=== PATIENT | female | born 1980 | race Caucasian/White ===

== ENCOUNTER 2024-06-06 20:25 | Emergency (ER) | payer OTHER ==
[~2024-06-06] VITALS: Ht 175.3 cm; Wt 117.9 kg
[~2024-06-06 20:25] MED LIST: BIKTARVY 50-201 EACH PO; INDOMETHACIN50 MG PO; LEVOFLOXACIN250 MG PO; LYRICA50 MG PO; MEDROL DOSE PACK PO; NAPROSYN500 MG PO; TIZANIDINE HCL4 M1 PO
[2024-06-06 21:29] VITALS: TEMP 98.6
[2024-06-06 21:44] LABS: BASOPHILS # (AUTO) 0.1 (0.0-0.1); BASOPHILS % 0.9 % (0.0-1.0); EOSINOPHILS % 0.4 % (0.0-6.0); HEMATOCRIT 40.9 % (34.2-44.1); HEMOGLOBIN 13.7 g/dL (12.0-16.0); LYMPHOCYTES # (AUTO) 2.8 (1.0-3.2); MEAN CORPUSCULAR HEMOGLOBIN 30.2 pg (28-32); MEAN CORPUSCULAR HGB CONC 33.5 g/dL (31-35); MEAN CORPUSCULAR VOLUME 90.1 fL (81-99); MONOCYTES # (AUTO) 0.5 (0.2-0.8); MONOCYTES % 6.7 % (4.4-11.3); NEUTROPHILS # (AUTO) 4.1 (2.1-6.9); NEUTROPHILS % 54.7 % (38.7-80.0); PLATELET COUNT 223 x10e3/uL (140-360); RED BLOOD COUNT 4.54 x10e6/uL (3.6-5.1); RED CELL DISTRIBUTION WIDTH 12.5 % (11.7-14.4); WHITE BLOOD COUNT 7.43 x10e3/uL (4.8-10.8)
[2024-06-06] MEDS: LEVOFLOXACIN 750MG/D5W 150ML 150 ML IV ONE (21:59)
[2024-06-06 22:05] LABS: ALBUMIN 4.4 g/dL (3.5-5.0); ALBUMIN/GLOBULIN RATIO 1.5 (0.8-2.0); ANION GAP 23.6 mmol/L (8-16); BILIRUBIN,TOTAL 0.3 mg/dL (0.2-1.2); CALCIUM 9.5 mg/dL (8.4-10.2); CREATININE, SERUM 0.85 mg/dL (0.57-1.11); POTASSIUM 3.6 mmol/L (3.5-5.1); TOTAL PROTEIN 7.4 g/dL (6.5-8.1)
[2024-06-06] MEDS ORDERED: ACETAMINOPHEN 325 MG TAB ONE (22:17)
[2024-06-06] MEDS: SODIUM CHLORIDE 0.9% 1000ML 1,000 ML IV STA (22:17)
[2024-06-06] MEDS: ACETAMINOPHEN 325 MG TAB PO STA (22:18)
[2024-06-06] MEDS ORDERED: CIPRO500 MG PO (22:44)
[2024-06-06 23:00] VITALS: PULSE 76; RESP 22
[2024-06-06 23:53] VITALS: BP 161/110
[2024-06-06] MEDS: HYDRALAZINE HCL 20 MG/ML VIAL IV STA (23:53)
[2024-06-07] VITALS: O2SAT 100
== END 2024-06-07 00:30 | disposition home or self-care (01) ==
LOC: ER 20:54
DX: G89.18 Other acute postprocedural pain (principal); L60.0 Ingrowing nail; R03.0 Elevated blood-pressure reading, without diagnosis of hypertension; B20 Human immunodeficiency virus [HIV] disease
CPT/HCPCS: 36415; 73630; 80053; 85025; 99284; J0360; J7030